=== PATIENT | female | born 1990 | race Caucasian/White ===

== ENCOUNTER 2020-05-19 11:25 | Outpatient (CLI) | payer OTHER, SELFPAY ==
[2020-05-19] VITALS (7 sets, daily range): BP systolic 124–155; BP diastolic 60–72; PULSE 72–79
[2020-05-19 12:19] LABS: Basophils Percent Auto 0.3 % (0.2-1.2); Eosinophils Absolute Auto 0.2 K/mm3 (0-0.3); Hemoglobin 11.6 g/dL (12.0-15.0); Immature Granulocyte Absolute 0.04 K/mm3 (0.00-0.031); Immature Granulocyte Percent A 0.4 % (0-0.5); Lymphocytes Absolute Auto 2.35 K/mm3 (0.9-3.2); Lymphocytes Percent Auto 22.1 % (18.3-44.2); Mean Corpuscular HGB Conc 33.1 g/dl (32-36); Mean Corpuscular Hemoglobin 26.8 pg (26-34); Mean Corpuscular Volume 80.8 fl (80-100); Mean Platelet Volume 9.5 fl (7.4-10.4); Monocytes Percent Auto 9.2 % (2.6-8.5); Platelet Count Result 279 k/mm3 (150-375); Red Blood Count 4.33 M/mm3 (4.2-5.4); Red Cell Distribution Width 12.8 % (11.5-14.5); White Blood Count 10.6 K/mm3 (4.5-10.0)
[2020-05-19 12:25] LABS: Add Urine Microscopic? YES; Appearance Urine Cloudy (Clear); Bacteria Urine Trace /hpf; Bilirubin Urine Negative (Negative); Blood Urine Negative (Negative); Color Urine Yellow (Yellow); Glucose Urine UA Negative (Negative); Ketones Urine Negative (Negative); Leukocyte Esterase Ur 3+ LEU/UL (NEGATIVE); Mucus Urine Rare /lpf; Nitrate Urine Negative (Negative); Protein Urine Negative (Negative); RBC Urine 0-2 /hpf (0-2); Specific Grav Ur 1.013 (1.001-1.035); Squamous Epithelial Cell Urine Many /hpf (Few); Urobilinogen Urine Negative mg/dL (<2.0)
[2020-05-19 12:32] LABS: Alanine Aminotransferase 19 U/L (4-35); Albumin Level 3.7 g/dL (3.5-5.1); Alkaline Phosphatase 91 U/L (38-126); Aspartate Amino Transferase 20 U/L (14-36); Bilirubin,Total 0.3 mg/dL (0.2-1.3); Blood Urea Nitrogen 7 mg/dL (7-17); Calcium 8.9 mg/dL (8.4-10.2); Carbon Dioxide 20 mmol/L (22-30); Chloride 106 mmol/L (98-107); Estimated Glomerular Filt Rate > 60; Glucose 76 mg/dL (65-105); Sodium 134 mmol/L (137-145); Uric Acid 4.6 mg/dL (2.5-7.5)
[2020-05-19 13:04] LABS: Creatinine Urine 62.9 mg/dL; Total Protein Urine Random 11 mg/dL
--- NOTE | 2020-05-19 13:13 | PC.NURSE ---
1310- Spoke with Dr. Hopper, lab results and BP's reveiwed. Orders to discharge to home.
== END 2020-05-19 13:14 | disposition home or self-care (01) ==
LOC: ANHOBOP 11:30 → ANHOBPP 11:33
PROVIDERS: Visit Provider Student in an Organized Health Care Education/Training Program
DX: O13.9 Gestational [pregnancy-induced] hypertension without significant proteinuria, unspecified trimester (principal); Z3A.00 Weeks of gestation of pregnancy not specified
CPT/HCPCS: 36415; 59025; 80053; 81001; 82570; 84156; 84550; 85025; 87086; 87088; 99199

== ENCOUNTER 2020-06-02 07:26 | Outpatient (CLI) | payer OTHER, SELFPAY ==
[2020-06-02 07:47] VITALS: TEMP 37
[2020-06-02 07:48] VITALS: BP 134/69; PULSE 68
--- NOTE | 2020-06-02 08:26 | WPDOBADMIT ---
Obstetrics - Admit Note Admission Note: 29 y/o G1 at 38 2/7 weeks here for external cephalic version for breech presentation. No contractions. No vaginal bleeding. No leakage of fluid. No headache or visual field change. No epigastric or RUQ pain. Good movement. Blood type Apos. AVSS NST 150 reactive. Category I. TOCO: rare contractions. ABD soft, nontender, gravid. EXT nontender, no edema. Bedside ultrasound performed by me shows vertex presentation, fundal placenta, adequate AFV, good movement. A: Spontaneous vertex presentation. P: Home to f/u next week. Reviewed labor precautions.
--- NOTE | 2020-06-02 08:31 | PC.NURSE ---
0726-Pt here for external version, informed she will have a saline lock placed and monitored prior to procedure.
== END 2020-06-02 08:32 | disposition home or self-care (01) ==
LOC: ANHOBOP 07:31 → ANHOBPP 07:32
PROVIDERS: Visit Provider Obstetrics & Gynecology
DX: O13.9 Gestational [pregnancy-induced] hypertension without significant proteinuria, unspecified trimester (principal); Z3A.00 Weeks of gestation of pregnancy not specified
CPT/HCPCS: 59025; 99199

== ENCOUNTER 2020-06-09 17:43 | Inpatient (IN) | payer OTHER, SELFPAY ==
[2020-06-09] VITALS (21 sets, daily range): BP systolic 111–147; BP diastolic 62–110; PULSE 70–89; TEMP 36.8
[2020-06-09 18:47] LABS: Basophils Percent Auto 0.3 % (0.2-1.2); Eosinophils Absolute Auto 0.2 K/mm3 (0-0.3); Eosinophils Percent Auto 2.3 % (0-4.4); Hematocrit 34.2 % (37.0-47.0); Hemoglobin 11.5 g/dL (12.0-15.0); Immature Granulocyte Absolute 0.04 K/mm3 (0.00-0.031); Immature Granulocyte Percent A 0.4 % (0-0.5); Lymphocytes Absolute Auto 2.37 K/mm3 (0.9-3.2); Lymphocytes Percent Auto 22.7 % (18.3-44.2); Mean Corpuscular HGB Conc 33.6 g/dl (32-36); Mean Corpuscular Hemoglobin 26.8 pg (26-34); Mean Corpuscular Volume 79.7 fl (80-100); Mean Platelet Volume 10.1 fl (7.4-10.4); Monocytes Absolute Auto 0.7 K/mm3 (0.1-0.6); Monocytes Percent Auto 7.1 % (2.6-8.5); Neutrophils Percent Auto 67.2 % (45.5-73.1); Platelet Count Result 288 k/mm3 (150-375); Red Blood Count 4.29 M/mm3 (4.2-5.4); Red Cell Distribution Width 13.4 % (11.5-14.5); White Blood Count 10.4 K/mm3 (4.5-10.0)
[2020-06-09] MEDS: DINOPROSTONE 10 MG VAG INSERT VAGINAL (18:55)
[2020-06-09 19:05] LABS: Alanine Aminotransferase 24 U/L (4-35); Albumin Level 3.7 g/dL (3.5-5.1); Alkaline Phosphatase 102 U/L (38-126); Anion Gap 11 mmol/L (8-16); Aspartate Amino Transferase 22 U/L (14-36); Bilirubin,Total 0.1 mg/dL (0.2-1.3); Blood Urea Nitrogen 9 mg/dL (7-17); Calcium 8.8 mg/dL (8.4-10.2); Carbon Dioxide 18 mmol/L (22-30); Chloride 108 mmol/L (98-107); Estimated Glomerular Filt Rate > 60; Glucose 120 mg/dL (65-105); Potassium 3.6 mmol/L (3.4-5.0); Sodium 137 mmol/L (137-145)
[2020-06-09 19:08] LABS: Uric Acid 4.9 mg/dL (2.5-7.5)
[2020-06-10] VITALS (254 sets, daily range): BP systolic 88–238; BP diastolic 43–150; PULSE 60–135; RESP 15–18; TEMP 36.4–37.5; O2SAT 78–100; BMI 37.6
--- NOTE | 2020-06-10 01:01 | LDADM ---
This patient, Mar Pantoja, was admitted to Labor/Delivery/Recovery 107 on 06/09/20 at 17:43. Plans for labor, pain management and were discussed with patient. Patient/family oriented to hospital policies and general routines including ID bracelet, bed and alarms, visiting hours, pain management, procedures, bathroom and other care routines, personal items, smoking policy, room service/diet and guest tray routines, security routines, and visiting hours. Patient/Family are encouraged to report perceived risks to care and to ask questions if they do not understand what they are told or what they should do. See OBIX for further documentation.
[2020-06-10] MEDS: LACTATED RINGERS 1,000 ML 125 ML IV CONT ×3 (05:50→10:50)
[2020-06-10] MEDS: OXYTOCIN 30 UNITS/NS 500 ML 30 UNITS/500 ML BAG 6 UNITS IV CONT (05:50)
--- NOTE | 2020-06-10 07:15 | WPDOBADMIT ---
Obstetrics - Admit Note Admission Note: record reviewed. Additions to the history and/or subsequent changes in the physical findings follow. 29 y/o G1 at 39 3/7 weeks here for induction of labor. Cervidil overnight, has been withdrawn. Feeling some contractions. GBS neg. AVSS NST reactive TOCO: contractions every 2-5 min ABD soft, nontender, gravid, vertex EXT nontender Cervix 2-3/50/-2. AROM with thinly meconium-stained fluid. Vertex. A: IUP at 39 3/7 weeks, recent breech presentation, now vertex. Here for induction. P: Oxytocin. Anticipate . Peds aware of thin meconium.
[2020-06-10 07:21] LABS: Rapid Plasma Reagin Non-Reactive (NonReactive)
--- NOTE | 2020-06-10 09:07 | WPDANESEPP ---
Anes - Eval Pre Procedure Procedure: labor epidural Date/Time: 06/10/20 09:07 Surgeon: Bright Oneill Preop Diagnosis: Pain During Labor Pre Op Diagnosis: induction Patient Data Age: 29 Gender: F Height: 5 ft 7 in Weight: 109 kg Last Vital Signs Temp 37.2 C 06/10/20 08:00 Pulse 70 06/10/20 09:01 BP 131/71 06/10/20 09:01 Allergies Allergy/AdvReac Type Severity Reaction Status Date / Time Sulfa (Sulfonamide Allergy Unknown Verified 01/22/18 11:36 Antibiotics) Home Medications Medication Instructions Recorded Confirmed Type PNV cmb#95-ferrous fumarate-FA 1 tablet PO DAILY 05/14/20 06/02/20 History [] omega 5-ysp-pih-fish oil [Fish Oil] 1 cap PO DAILY 05/14/20 06/02/20 History Laboratory Tests 06/09/20 06/09/20 06/09/20 18:37 18:38 18:38 WBC 10.4 K/mm3 H K/mm3 (4.5-10.0) RBC 4.29 M/mm3 M/mm3 (4.2-5.4) Hgb 11.5 g/dL L g/dL (12.0-15.0) Hct 34.2 % L % (37.0-47.0) MCV 79.7 fl L fl (80-100) MCH 26.8 pg pg (26-34) MCHC 33.6 g/dl g/dl (32-36) RDW 13.4 % % (11.5-14.5) Plt Count 288 k/mm3 k/mm3 (150-375) MPV 10.1 fl fl (7.4-10.4) Immature Gran % (Auto) 0.4 % % (0-0.5) Neut % (Auto) 67.2 % % (45.5-73.1) Lymph % (Auto) 22.7 % % (18.3-44.2) [place] % (Auto) 7.1 % % (2.6-8.5) Eos % (Auto) 2.3 % % (0-4.4) Baso % (Auto) 0.3 % % (0.2-1.2) Lymph # (Auto) 2.37 K/mm3 K/mm3 (0.9-3.2) [place] # (Auto) 0.7 K/mm3 H K/mm3 (0.1-0.6) Eos # (Auto) 0.2 K/mm3 K/mm3 (0-0.3) Baso # (Auto) 0.0 K/mm3 K/mm3 (0.0-0.1) Abs Immat Gran (auto) 0.04 K/mm3 H K/mm3 (0.00-0.031) Absolute Neuts (auto) 7.0 K/mm3 H K/mm3 (1.3-6.7) Absolute Nucleated RBC 0.0 K/mm3 K/mm3 (0.0-0.012) Nucleated RBC % 0.0 % % (0.0-0.2) Sodium 137 mmol/L mmol/L (137-145) Potassium 3.6 mmol/L mmol/L (3.4-5.0) Chloride 108 mmol/L H mmol/L (98-107) Carbon Dioxide 18 mmol/L L mmol/L (22-30) Anion Gap 11 mmol/L mmol/L (8-16) BUN 9 mg/dL mg/dL (7-17) Creatinine 0.50 mg/dL L mg/dL (0.7-1.0) Estim Creat Clear Calc Not Reportable Estimated GFR > 60 (59 - ) Glucose 120 mg/dL H mg/dL (65-105) Uric Acid 4.9 mg/dL mg/dL (2.5-7.5) Calcium 8.8 mg/dL mg/dL (8.4-10.2) Total Bilirubin 0.1 mg/dL L mg/dL (0.2-1.3) AST 22 U/L U/L (14-36) ALT 24 U/L U/L (4-35) Alkaline Phosphatase 102 U/L U/L (38-126) Total Protein 7.0 g/dL g/dL (6.3-8.2) Albumin 3.7 g/dL g/dL (3.5-5.1) RPR Blood Type Antibody Screen 06/09/20 06/09/20 18:38 18:38 WBC RBC Hgb Hct MCV MCH MCHC RDW Plt Count MPV Immature Gran % (Auto) Neut % (Auto) Lymph % (Auto) [place] % (Auto) Eos % (Auto) Baso % (Auto) Lymph # (Auto) [place] # (Auto) Eos # (Auto) Baso # (Auto) Abs Immat Gran (auto) Absolute Neuts (auto) Absolute Nucleated RBC Nucleated RBC % Sodium Potassium Chloride Carbon Dioxide Anion Gap BUN Creatinine Estim Creat Clear Calc Estimated GFR Glucose Uric Acid Calcium Total Bilirubin AST ALT Alkaline Phosphatase Total Protein Albumin RPR Non-reactive (NonReactive) Blood Type A Positive Antibody Screen Negative Patient hx anesthesia problems: none Fa
--- NOTE | 2020-06-10 12:17 | PM.OBPNLAB ---
Pain Control Date/time seen: 06/10/20 12:17 Comments: Comfortable with epidural. Pelvic Exam Dilation (cm): 4 Effacement (%): 50 station: -2 Contractions Contraction frequency: 4 Contraction pattern: Regular Contraction intensity: Moderate Status status: Category l Assessment and Plan Pitocin rate (mU/min): 4 Comments: Continue oxytocin. Anticipate .
--- NOTE | 2020-06-10 17:17 | PM.OBPNLAB ---
Pain Control Date/time seen: 06/10/20 17:17 Comments: Pain OK. Pelvic Exam Dilation (cm): 5 Effacement (%): 50 station: -2 Contractions Contraction frequency: 2 Contraction pattern: Regular Contraction intensity: Moderate Status status: Category l Assessment and Plan Comments: Slow progress in labor. I would like to reevaluate her in a couple hours. Continue labor for now.
--- NOTE | 2020-06-10 18:15 | PM.IMHP ---
H&P: HPI History of Present Illness Date/Time: 06/11/20 15:11 Chief complaint: induction Narrative: 29 y/o G1 at 39 3/7 weeks here for induction of labor. She had Cervidil overnight, then oxytocin today. Comfortable with epidural. However, no significant cervical change has occurred despite several hours of adequate contractions by IUPC monitoring. In addition, the FHR tracing has demonstrated gradually more frequent decelerations. Review of Systems Review of Systems: All systems reviewed & are unremarkable except as noted in HPI and below PMFSH Family History Family History Mother Asthma Social History Social History Smoking status: Never smoker Second hand tobacco smoke exposure: No Substance use: never Gender identity (if verbalized by the patient): Female Spiritual care concerns: No Meds Home Medications and Allergies Home Medications Medication Instructions Recorded Confirmed Type PNV cmb#95-ferrous fumarate-FA 1 tablet PO DAILY 05/14/20 06/02/20 History [] omega 9-kxu-vnu-fish oil [Fish Oil] 1 cap PO DAILY 05/14/20 06/02/20 History hydrocodone-acetaminophen [[place]] 1 - 2 tablet PO Q6H PRN #30 tablet 06/10/20 Rx ibuprofen 600 mg PO Q6H PRN #30 tablet 06/10/20 Rx Allergies Allergy/AdvReac Type Severity Reaction Status Date / Time Sulfa (Sulfonamide Allergy Unknown Verified 01/22/18 11:36 Antibiotics) Vital Signs Vital Signs - 24 hr 06/10/20 15:14 06/10/20 15:16 06/10/20 15:19 Temperature Pulse Rate 71 Respiratory Rate Blood Pressure 100/67 Pulse Oximetry 100 100 06/10/20 15:24 06/10/20 15:29 06/10/20 15:30 Temperature 37.2 C Pulse Rate Respiratory Rate Blood Pressure Pulse Oximetry 100 100 06/10/20 15:31 06/10/20 15:34 06/10/20 15:39 Temperature Pulse Rate 76 Respiratory Rate Blood Pressure 120/72 Pulse Oximetry 100 100 06/10/20 15:44 06/10/20 15:46 06/10/20 15:49 Temperature Pulse Rate 61 Respiratory Rate Blood Pressure 113/65 Pulse Oximetry 100 100 06/10/20 15:54 06/10/20 15:59 06/10/20 16:01 Temperature Pulse Rate 93 Respiratory Rate Blood Pressure 119/84 Pulse Oximetry 100 100 06/10/20 16:04 06/10/20 16:09 06/10/20 16:14 Temperature Pulse Rate Respiratory Rate Blood Pressure Pulse Oximetry 100 100 100 06/10/20 16:16 06/10/20 16:19 06/10/20 16:24 Temperature Pulse Rate 73 Respiratory Rate Blood Pressure 127/71 Pulse Oximetry 99 100 06/10/20 16:29 06/10/20 16:31 06/10/20 16:34 Temperature Pulse Rate 72 Respiratory Rate Blood Pressure 123/65 Pulse Oximetry 100 100 06/10/20 16:37 06/10/20 16:39 06/10/20 16:44 Temperature 36.8 C Pulse Rate Respiratory Rate Blood Pressure Pulse Oximetry 100 100 06/10/20 16:46 06/10/20 16:49 06/10/20 16:54 Temperature Pulse Rate 71 Respiratory Rate Blood Pressure 133/66 Pulse Oximetry 100 97 06/10/20 16:59 06/10/20 17:01 06/10/20 17:04 Temperature Pulse Rate 68 Respiratory Rate Blood Pressure 129/66 Pulse Oximetry 100 100 06/10/20 17:09 06/10/20 17:14 06/10/20 17:16 Temperature Pulse Rate 77 Respiratory Rate Blood Pressure 115/54 L Pulse Oximetry 98 100 06/10/20 17:19 06/10/20 17:24 06/10/20 17:28 Temperature 37.1 C Pulse Rate Respiratory Rate Blood Pressure Pulse Oximetry 100 100 06/10/20 17:29 06/10/20 17:31 06/10/20 17:34 Temperature Pulse Rate 69 Respiratory Rate Blood Pressure 117/59 L Pulse Oximetry 100 100 06/10/20 17:39 06/10/20 17:44 06/10/20 17:46 Temperature Pulse Rate 63 Respiratory Rate Blood Pressure 106/55 L Pulse Oximetry 100 100 06/10/20 17:49 06/10/20 17:54 06/10/20 17:59 Temperature Pulse Rate Respiratory Rat
--- NOTE | 2020-06-10 18:40 | WPDANESEFPP ---
Anes - Eval Final PreProcedure Day of Procedure 06/10/20 18:40 Patient weight: obese Heart: regular rate and rhythm Lungs: clear to auscultation and normal air movement Airway: Mallampati scale Neurological: alert and oriented Last oral intake: >/= 8 hours ASA classification: II Emergent: no Anesthetic plan: proceed Anesthesia type and monitoring: regional epidural and standard monitoring Informed Consent: The patient's anesthetic plan and its attendant risks and benefits were discussed with the patient/family/POA. Questions were solicited and answers provided to the satisfaction of the patient/family/POA.
[2020-06-10] MEDS: ceFAZolin 2 GM/D5W 50 ML 2 GM/50 ML BAG 50 GM (18:44)
--- NOTE | 2020-06-10 19:43 | PM.OBPRVD ---
OB - Delivery Note Procedure Delivery date: 06/10/20 Procedure: Procedures Operation Date: 06/10/20 18:45 Actual Procedures Side Surgeon p Section Not Applicable Bright Oneill MD Primary low transverse delivery Delivery monitor: external FHT, external uterine, internal FHT and internal uterine Route of delivery: Specimen: Yes (cord blood, placenta) Estimated blood loss (mL): 660 Anesthesia type: Epidural Disposition: PACU Complications: None Narrative: The patient was taken to the operating room where she was prepared and draped in the usual sterile fashion in dorsal supine position with a leftward tilt. She received cefazolin preoperatively. Spinal anesthesia was found to be adequate. A Pfannenstiel skin incision was made and carried through to the underlying layer of the fascia. The fascia was incised in the midline and the incision was extended laterally. The fascia was dissected free of the underlying rectus muscles. The rectus muscles were in the midline. The peritoneum was identified, tented up and entered sharply. The peritoneal incision was extended superiorly and inferiorly with good visualization of the bladder. The bladder blade was placed. The vesicouterine peritoneum was identified, tented up and entered sharply. The incision was extended laterally and the bladder flap was developed. The bladder blade was replaced. The uterus was then incised sharply in a transverse fashion along the lower uterine segment. The incision was extended laterally. The 's head was delivered atraumatically to the sterile field, followed by the body. The nose and mouth were bulb suctioned. After a delay, the cord was clamped and cut. The infant was handed off the field. Cord blood was collected. The placenta was removed manually and was passed off the field. The uterus was exteriorized and cleared of all clots and debris. The uterine incision was reapproximated using 0 Monocryl in a running, locked fashion. A second, imbricating layer of the same suture was placed. Excellent hemostasis resulted as did excellent reapproximation of the normal anatomy. The uterus was returned the abdomen. The pelvis was irrigated copiously with warmed normal saline. Rigorous hemostasis was assured. The fascial layer was reapproximated using 0 Vicryl in a running fashion. The skin was closed with a running, subcuticular stitch of 4 0 Vicryl. Dermaflex was applied externally. Sponge, lap, needle and instrument counts were correct. The patient was taken to the recovery room in stable condition. The went to the nursery in stable condition. I was present and scrubbed the entire procedure. [place] Baby Date of : 06/10/20 Time of : 19:09 Weeks of gestation at delivery: 39 Infant gender: Male Weight (pounds): 7 Weight (ounces): 7 presentation: vertex Placenta delivery description: Manual Removal and Normal Configuration cord vessel description: 3 Vessels score one minute: 8 score five minutes: 8
[2020-06-10] MEDS: OXYTOCIN 30 UNITS/NS 500 ML 30 UNITS/500 ML BAG 125 UNITS IV CONT (20:10)
[2020-06-10] MEDS: KETOROLAC 30 MG/ML VIAL (*BKC) IV PUSH (21:44)
--- NOTE | 2020-06-10 22:02 | PC.NURSE ---
Patient transferred to post room #282 via stretcher. Support person present. Oriented to unit, room, information board, rooming in, admission packet and security measures. Patient verbalizes understanding.
[2020-06-11] VITALS: BP 116/64; PULSE 71; RESP 16; TEMP 36.4; O2SAT 100
[2020-06-11] MEDS: DEXTROSE 5%/0.45% SOD CHL 1,000 ML 125 ML IV CONT (00:16)
[2020-06-11 01:00] VITALS: BP 116/70; PULSE 72; O2SAT 100
[2020-06-11] MEDS: diphenhydrAMINE HCl INJ 50 MG/ML VIAL 25 MG IV PUSH (01:30)
[2020-06-11] MEDS: KETOROLAC 30 MG/ML VIAL (*BKC) IV PUSH (04:14)
[2020-06-11 04:30] VITALS: BP 121/63; PULSE 61; RESP 16; TEMP 36.6; O2SAT 100
[2020-06-11 05:26] LABS: Basophils Percent Auto 0.2 % (0.2-1.2); Eosinophils Absolute Auto 0.1 K/mm3 (0-0.3); Hematocrit 29.5 % (37.0-47.0); Hemoglobin 9.7 g/dL (12.0-15.0); Immature Granulocyte Absolute 0.04 K/mm3 (0.00-0.031); Immature Granulocyte Percent A 0.3 % (0-0.5); Lymphocytes Absolute Auto 2.19 K/mm3 (0.9-3.2); Mean Corpuscular HGB Conc 32.9 g/dl (32-36); Mean Corpuscular Hemoglobin 26.7 pg (26-34); Mean Corpuscular Volume 81.3 fl (80-100); Mean Platelet Volume 10.4 fl (7.4-10.4); Monocytes Absolute Auto 0.9 K/mm3 (0.1-0.6); Monocytes Percent Auto 7.1 % (2.6-8.5); Neutrophils Absolute Auto 8.9 K/mm3 (1.3-6.7); Neutrophils Percent Auto 73.4 % (45.5-73.1); Platelet Count Result 224 k/mm3 (150-375); Red Blood Count 3.63 M/mm3 (4.2-5.4); Red Cell Distribution Width 13.3 % (11.5-14.5); White Blood Count 12.2 K/mm3 (4.5-10.0)
[2020-06-11 07:11] VITALS: BP 108/50; PULSE 76; RESP 16; TEMP 36.7; O2SAT 99
[2020-06-11] MEDS: MULTIVIT/MIN/PREN/FOL AC/IRON TABLET 1 TAB PO (08:26)
[2020-06-11] MEDS: DOCUSATE SODIUM 100 MG CAPSULE PO ×2 (08:26→17:15)
[2020-06-11] MEDS: POLYSACCHARIDE IRON COMPLEX 150 MG CAPSULE PO ×2 (08:26→17:15)
--- NOTE | 2020-06-11 08:59 | P.PNOB_ITS ---
OB - PN: Subj Subjective Date/time seen: 06/11/20 08:59 Interval history: Patient doing well this AM. she has note yet ambulated our of bed. She is tolerating PO. She reports adequate pain control. Her bleeding is normal and she reports normal lochia. She denies fever, chills, N/V. She has not yet passed flatus. Patient comments: no complaints and pain well controlled; no flatus present OB - PN: Obj Data Labs CBC & Chem 7: 06/11/20 04:30 06/09/20 18:38 Labs: Laboratory Results - last 24 hr 06/11/20 04:30 WBC 12.2 H RBC 3.63 L Hgb 9.7 L Hct 29.5 L MCV 81.3 MCH 26.7 MCHC 32.9 RDW 13.3 Plt Count 224 MPV 10.4 Immature Gran % (Auto) 0.3 Neut % (Auto) 73.4 H Lymph % (Auto) 18.0 L [place] % (Auto) 7.1 Eos % (Auto) 1.0 Baso % (Auto) 0.2 Lymph # (Auto) 2.19 [place] # (Auto) 0.9 H Eos # (Auto) 0.1 Baso # (Auto) 0.0 Abs Immat Gran (auto) 0.04 H Absolute Neuts (auto) 8.9 H Absolute Nucleated RBC 0.0 Nucleated RBC % 0.0 OB - PN A/P Plan day: 1 Plan: routine care Comments: patient doing well this AM will plan to D/C [place] once ambulating advance diet as tolerated H/H stable continue routine PP care plan for circumcision today Time Spent With Patient Time: Total time spent is greater than 50% in coordination of care (as documented) at patient's floor/unit and/or counseling patient: Time with patient: less than 15 minutes Review of Systems Constitutional: Constitutional: Reports no additional constitutional complaints Cardiovascular: Cardiovascular: Reports no additional cardiovascular complaints Respiratory: Respiratory: Reports no additional respiratory complaints Gastrointestinal: Gastrointestinal: Reports no additional gastrointestinal complaints Genitourinary: Genitourinary: Reports no additional female genitourinary complaints Exam Const: General: comfortable and no acute distress Resp: Effort & Inspection: normal respiratory effort Auscultation: clear to auscultation bilaterally Cardio: Rate: regular rate GI: GI Palp: Yes Soft to palpation and Yes Tenderness to palpation present (GI) (appropriately tender around incision ) Auscultation: normal bowel sounds Other: fundus firm and below umbilicus Incision C/D/I Urinary Catheter: Urinary Catheter: urine clear Psych: Appearance: grossly normal Mental Status: mental status grossly normal Affect: normal affect
--- NOTE | 2020-06-11 10:29 | WPDANLDPN2 ---
Anes-Prog Note L&D Date/Time: 06/11/20 10:29 Comfortable throughout: section Neuraxial method: epidural Epidural/Spinal procedure site: clean & non-tender Neuro status: Neuro function grossly intact. Cardiovascular status: normal Respiratory status: normal Airway patency: baseline Mental status: baseline Post-Op hydration status: normal Vital Signs: Last Vital Signs Temp 36.7 C 06/11/20 07:11 Pulse 76 06/11/20 07:11 Resp 16 06/11/20 07:11 BP 108/50 L 06/11/20 07:11 Pulse Ox 99 06/11/20 07:11 I/O: Intake & Output 06/10/20 06/11/20 06/11/20 23:59 07:59 15:59 Intake Total 1700 1000 1245 Output Total 425 1050 750 Balance 1275 -50 495 Post-procedural complaints: pruritis moderate, treatment effective Patient feedback: Patient satisfied with anesthetic care.
--- NOTE | 2020-06-11 10:29 | WPDANLDNPN2 ---
Anes-Prog Note L&D-Neuraxial Date/Time: 06/11/20 10:29 Neuraxial medications: epidural PF morphine Opiod-related complaints: pruritis moderate, treatment effective Patient feedback: Patient satisfied with post-operative pain management.
[2020-06-11 11:25] VITALS: BP 129/73; PULSE 68; RESP 16; TEMP 36.4; O2SAT 100
--- NOTE | 2020-06-11 12:30 | PC.NURSE ---
Mother called out for assist with feeding. Reviewed feeding cues, frequencies, duration of feedings, feeding elimination flow sheet, and signs of adequate intake. Demonstrated stimulation techniques to wake infant for feeding. Assisted with to breast. Reviewed positioning/alignment in cross cradle, holding breast in U hold and guided asymmetrical latch on. Discussed rational for each. was able to latch correctly. nursed eagerly, with steady draws and frequent swallowing noted. Reviewed signs of a correct latch, effective nursing and suck swallow ratio. Infant was able to maintain latch without discomfort to mother. Nipple care reviewed. Suggested mother stimulate while feeding to keep awake and nursing effectively for increased intake and to assist with maintaining deep latch. Instructed mother to call out for RN assistance if she is unable to latch for feeding or she has discomfort with nursing. Instructed feeding should be initiated three hours from start of last feeding or if feeding cues are noted before. Mother voiced understanding of information shared.
[2020-06-11] MEDS: IBUPROFEN 600 MG TABLET PO ×2 (13:17→20:29)
--- NOTE | 2020-06-11 20:00 | PC.NURSE ---
Patient to view the discharge video Mother & Baby Care, The First Two Weeks online. Patient was given the opportunity and encouraged to ask questions. Patient verbalized understanding of information shared and has been given the mother/baby guide for home reference.
[2020-06-11] MEDS: SIMETHICONE 80 MG TAB.CHEW PO ×2 (20:29→23:50)
[2020-06-11 20:30] VITALS: BP 132/63; PULSE 89; RESP 16; TEMP 37.1; O2SAT 100
[2020-06-12] MEDS: IBUPROFEN 600 MG TABLET PO (07:12)
[2020-06-12] MEDS: DOCUSATE SODIUM 100 MG CAPSULE PO (07:12)
[2020-06-12] MEDS: POLYSACCHARIDE IRON COMPLEX 150 MG CAPSULE PO (07:12)
[2020-06-12] MEDS: TETANUS,DIPHTHERIA,AC PERTUSSIS ADULT (0.5 ML) BOOSTRIX IM (07:13)
[2020-06-12] MEDS: SIMETHICONE 80 MG TAB.CHEW PO (07:20)
[2020-06-12] MEDS: MULTIVIT/MIN/PREN/FOL AC/IRON TABLET 1 TAB PO (07:20)
[2020-06-12 08:00] VITALS: BP 130/68; PULSE 75; RESP 18; TEMP 36.7; O2SAT 100
--- NOTE | 2020-06-12 08:06 | PM.OBDSVD ---
DS: Admitting Diagnosis Admitting Diagnosis Admitting Diagnosis: induction OB - DS: Summary OB Procedures : None OB Procedures Intrapartum: OB Procedures: : None Peripartum Data Delivery Method: Section Procedures: Procedures Operation Date: 06/10/20 18:45 Actual Procedures Side Surgeon p Section Not Applicable Bright Oneill MD complications: none Status at Discharge Functional status at discharge: independent ambulation Overall status at discharge: patient is progressing back to baseline Time Spent with Patient Time attestation: Total time spent providing and/or coordinating discharge services: Time spent: Less than 30 minutes Exam Const: General: comfortable and no acute distress Resp: Effort & Inspection: normal respiratory effort Auscultation: clear to auscultation bilaterally Cardio: Rate: regular rate GI: Inspection: non-distended GI Palp: Yes Soft to palpation, No Firmness to palpation present (GI), Yes Tenderness to palpation present (GI) (mild tenderness over incision ) and No Guarding due to palpation present (GI) Auscultation: normal bowel sounds Psych: Appearance: grossly normal Mental Status: mental status grossly normal Discharge Plan Discharge Attending physician on discharge: Bright Oneill Discharging Clinician: Bright Oneill Patient Disposition: Home, Self-Care Activity: may shower, may drive after 2 weeks and pelvic rest Diet: regular Wound Care Instructions: incision open to air Discharge Instructions: Call or return if temperature above 100.4? F, increased abdominal pain, increased vaginal bleeding or any new problems. Stand Alone Forms: General Discharge Information Follow-up/Referrals: Bright Oneill MD [Physician] - (4 weeks) Discharge Medications: New ibuprofen 600 mg tablet 600 mg PO Q6H PRN (Reason: cramps) Qty: 30 RF: 0 hydrocodone-acetaminophen [[place]] 5-325 mg tablet 1 - 2 tablet PO Q6H PRN (Reason: pain) Qty: 30 RF: 0 Rvi-T-Zsnedq Cream 1 applic topical PRN PRN (Reason: Sore Nipples) Qty: 1 RF: 0 Continued PNV cmb#95-ferrous fumarate-FA [] 28 mg iron- 800 mcg Tablet 1 tablet PO DAILY RF: 0 omega 0-nwc-gyp-fish oil [Fish Oil] 60-90-500 mg Capsule 1 cap PO DAILY RF: 0 Date of admission: 06/09/20 17:43 Primary Care Provider: PHYSICIAN,CENTRAL SUPPLY CLERK Admitting Provider: Birght Oneill Attending physician on admission: Bright Oneill
[2020-06-14 08:54] VITALS: BP 131/72; PULSE 79; RESP 20; TEMP 36.6; O2SAT 100
== END 2020-06-12 12:21 | disposition home or self-care (01) | DRG 788 ==
LOC: ANHLDR 06-10 19:48 → ANHOB2 06-11 08:50 → ANHLDR 06-14 11:27 → ANHOB2 06-14 11:27
PROVIDERS: Admitting Provider Obstetrics & Gynecology; Visit Provider Student in an Organized Health Care Education/Training Program
PROC: 10D00Z1 Extraction of Products of Conception, Low, Open Approach (ICD-10-PCS; CPT 59514; principal; 2020-06-10 18:45)
DX: O77.0 Labor and delivery complicated by meconium in amniotic fluid (principal); Z37.0 Single live birth; Z3A.39 39 weeks gestation of pregnancy; O99.214 Obesity complicating childbirth; E66.9 Obesity, unspecified; O62.1 Secondary uterine inertia; O36.8330 Maternal care for abnormalities of the fetal heart rate or rhythm, third trimester, not applicable or unspecified; O99.73 Diseases of the skin and subcutaneous tissue complicating the puerperium; L29.9 Pruritus, unspecified
CPT/HCPCS: 36415; 80053; 84550; 85025; 86592; 86850; 86900; 86901; 90715; A9270; J0690; J1200; J1885; J2274; J2370; J2405; J2590; J2795; J7120